=== PATIENT | female | born 1990 | race Caucasian/White ===

== ENCOUNTER 2018-03-24 13:41 | Day surgery (SDC) | payer OTHER ==
[~2018-03-24 13:41] MED LIST: Augmentin 875-1 EACH PO; BENZ100A PO; Cleocin HCl300 MG PO; ESCI10 PO; IBUP600 PO; Lisinopril2.5 MG PO; METF500 PO; METPRE4DP PO; Metformin HCl1000 MG PO; NAPR550 PO; Norco 5-325 Ta1 EACH PO; PROCODE120 PO; Percocet 5-3251 EACH PO; Prednisone20 MG PO; Robaxin500 MG PO; Sprintec1 EACH PO
== END 2018-03-24 22:47 | disposition home or self-care (01) ==
LOC: RAD 13:41 → MRI 14:00 → RAD 22:47
DX: S43.432D Superior glenoid labrum lesion of left shoulder, subsequent encounter (principal)
CPT/HCPCS: 23350; 73222; 77002; A9577; Q9967

== ENCOUNTER → 2024-04-18 | Outpatient (CLI) | payer OTHER ==
[2024-04-18 19:08] LABS: Hematocrit 42.4 % (33.0-51.0); Hemoglobin 14.2 g/dL (11.5-16.0); Mean Corpuscular HGB 30.5 pg (26.0-34.0); Mean Corpuscular HGB Conc 33.5 g/dL (31.5-36.5); Mean Corpuscular Volume 91 fL (80-100); Mean Platelet Volume 10.9 fL (9.1-12.4); Platelet Count 350 K/mm3 (150-400); RDW Coefficient Variation 11.9 % (11.7-14.2); RDW Standard Deviation 39.7 fL (35.1-46.3); Red Blood Cell Count 4.66 M/mm3 (3.80-5.20)
[2024-04-18 21:09] LABS: Bun/Creatinine Ratio 20.3 (12.0-20.0); Calcium, Blood 9.4 mg/dL (8.5-10.1); Creatinine, Blood 0.59 mg/dL (0.40-1.00); Potassium, Blood 3.9 mmol/L (3.5-5.5)
[2024-04-18 21:11] LABS: CHOL/HDL RATIO 5.2; Cholesterol 191 mg/dL (50-200); HDL Cholesterol 37 mg/dL (>39); LDL/HDL RATIO 3.1; Low Density Lipoprotein Chol 115 mg/dL (0-110); Triglycerides 193 mg/dL (30-140); Very Low Density Lipoprot Chol 38 mg/dL (6-28)
[2024-04-18 21:12] LABS: Creatinine, Urine Random 63.9 mg/dL (27.00-270.00)
[2024-04-18 21:15] LABS: Microalb/Creat Ratio UR, Rand 11.393 mg/g (0.000-30.000); Microalbumin, Random Urine 7.28 mg/L (0.000-20.000)
== END | disposition home or self-care (01) ==
LOC: LAB SHORT 18:17 → LAB 18:17
DX: E11.9 Type 2 diabetes mellitus without complications (principal)
CPT/HCPCS: 80048; 80061; 82043; 82570; 84443; 85027